=== PATIENT | female | born 1945 | race Caucasian/White ===

== ENCOUNTER 2017-11-06 16:54 | Inpatient (IN) | payer OTHER ==
[~2017-11-06] VITALS: Ht 172.7 cm; Wt 56.5 kg
[2017-11-06 20:26] LABS: BASOPHIL (%) 0.3 % (0-1); EOSINOPHIL (%) 0.4 % (0-5); HEMATOCRIT 33.2 % (36.0-46.0); HEMOGLOBIN 11.1 G/DL (11.9-15.5); IMMATURE GRANULOCYTE (%) 0.3 % (0.0-0.7); LYMPHOCYTE (%) 18.5 % (15-42); LYMPHOCYTE COUNT 1.4 K/uL (1.0-2.8); MCH 28.7 PG (29.0-34.0); MCHC 33.4 G/DL (30.0-36.0); MCV 85.8 FL (83-99); MONOCYTE (%) 6.1 % (3-12); MONOCYTE COUNT 0.5 K/uL (0-0.8); NEUTROPHIL (%) 74.4 % (45-76); NEUTROPHIL COUNT 5.6 K/uL (1.8-6.4); PLATELET COUNT 485 K/uL (156-360); RBC DIS.WIDTH-CV 14.8 % (11.8-14.6); RBC DIS.WIDTH-SD 46.6 % (39-53); RED BLOOD COUNT 3.87 M/uL (3.80-5.20); WHITE BLOOD COUNT 7.5 K/uL (4.1-10.2)
[2017-11-06 20:44] LABS: INTER. NORMALIZED RATIO 1.2
[2017-11-06 20:49] LABS: ALBUMIN 3.4 g/dL (3.2-4.8); CHLORIDE 101 mEq/L (99-109); POTASSIUM 4.6 mEq/L (3.7-5.4); SODIUM 134 mEq/L (136-147)
[2017-11-06 20:51] LABS: GLUCOSE 118 mg/dL (70-99)
[2017-11-06 20:52] LABS: TOTAL PROTEIN 7.1 g/dL (6.4-8.3)
[2017-11-06 20:53] LABS: TOTAL BILIRUBIN 0.3 mg/dL (0.0-1.0); TROP-I INTERPRETATION NEGATIVE; TROPONIN-I 0.02 ng/mL (0.0-0.30)
[2017-11-06 20:55] LABS: ALKALINE PHOSPHATASE 136 IU/L (3-129); CREATININE 0.7 mg/dL (0.6-1.3); GFR ESTIMATE (CALCULATED) > 59 mL/min/
[2017-11-06 20:56] LABS: UREA NITROGEN (BUN) 9 mg/dL (9-23)
[2017-11-06 20:57] LABS: AST (GOT) 20 IU/L (2-34)
[2017-11-06 20:58] LABS: ALT (GPT) 5 IU/L (3-49)
[2017-11-06] MEDS ORDERED: SYNTHROID88 MCG PO (22:43)
[2017-11-06] MEDS ORDERED: LITE COAT ASPI325 M1 PO (22:45)
[2017-11-06] MEDS ORDERED: IBUPROFEN400 MG PO (22:47)
[2017-11-07 06:19] LABS: INTER. NORMALIZED RATIO 1.2
[2017-11-07 15:35] VITALS: BP 127/67
[2017-11-07 19:51] VITALS: BP 122/65
[2017-11-07 23:55] VITALS: BP 119/61
[2017-11-08] VITALS (8 sets, daily range): BP systolic 109–146; BP diastolic 60–81
[2017-11-08 07:21] LABS: HEMATOCRIT 25.5 % (36.0-46.0); MCH 27.5 PG (29.0-34.0); MCHC 30.6 G/DL (30.0-36.0); PLATELET COUNT 430 K/uL (156-360); RBC DIS.WIDTH-SD 49.5 % (39-53); WHITE BLOOD COUNT 7.6 K/uL (4.1-10.2)
[2017-11-08 07:22] LABS: HEMOGLOBIN 7.8 G/DL (11.9-15.5); MCV 89.8 FL (83-99); RED BLOOD COUNT 2.84 M/uL (3.80-5.20)
[2017-11-08 07:45] LABS: CHLORIDE 103 MEQ/L (99-109); CREATININE 0.6 MG/DL (0.6-1.3); GFR ESTIMATE (CALCULATED) > 59 mL/min/; POTASSIUM 4.4 MEQ/L (3.7-5.4); SODIUM 137 MEQ/L (136-147); UREA NITROGEN (BUN) 7 mg/dL (9-23)
[2017-11-08 07:46] LABS: GLUCOSE 88 mg/dL (70-99)
[2017-11-08 09:55] LABS: IRON 20 MCG/DL (35-150); TRANSFERRIN (TIBC) 176.1 mg/dL (215-380); TRANSFERRIN SATUR. 11 % (20-55)
[2017-11-08 10:19] LABS: FOLIC ACID (FOLATE) 11.5 NG/ML (5.0-22.0)
[2017-11-08 10:46] LABS: FERRITIN 25 NG/ML (10-291)
[2017-11-09] VITALS (9 sets, daily range): BP systolic 115–142; BP diastolic 58–81
[2017-11-09 06:31] LABS: HEMATOCRIT 23.1 % (36.0-46.0); HEMOGLOBIN 7.3 G/DL (11.9-15.5); MCH 27.9 PG (29.0-34.0); MCHC 31.6 G/DL (30.0-36.0); MCV 88.2 FL (83-99); PLATELET COUNT 496 K/uL (156-360); RBC DIS.WIDTH-CV 15.1 % (11.8-14.6); RBC DIS.WIDTH-SD 48.5 % (39-53); RED BLOOD COUNT 2.62 M/uL (3.80-5.20); WHITE BLOOD COUNT 8.1 K/uL (4.1-10.2)
[2017-11-09 06:54] LABS: CHLORIDE 104 MEQ/L (99-109); CREATININE 0.5 MG/DL (0.6-1.3); GFR ESTIMATE (CALCULATED) > 59 mL/min/; GLUCOSE 98 mg/dL (70-99); POTASSIUM 4.2 MEQ/L (3.7-5.4); SODIUM 136 MEQ/L (136-147); UREA NITROGEN (BUN) 12 mg/dL (9-23)
[2017-11-10 07:01] LABS: HEMATOCRIT 32.1 % (36.0-46.0); MCV 87.7 FL (83-99)
[2017-11-10 07:05] LABS: HEMOGLOBIN 10.6 G/DL (11.9-15.5)
[2017-11-10 07:45] VITALS: BP 123/74
[2017-11-10 11:33] VITALS: BP 113/62
[2017-11-10 15:00] VITALS: BP 123/66
[2017-11-10 16:10] VITALS: BP 123/66
[2017-11-10 19:09] VITALS: BP 119/67
[2017-11-10 23:58] VITALS: BP 136/72
[2017-11-11 07:24] VITALS: BP 114/65
[2017-11-11 15:21] VITALS: BP 119/64
[2017-11-11 18:52] LABS: STOOL OCCULT BLD 1ST SPECIMEN POSITIVE
[2017-11-12 00:09] VITALS: BP 125/78
[2017-11-12 08:27] VITALS: BP 121/78
[2017-11-12 12:20] LABS: CSF PROTEIN 43 mg/dL (15-45)
[2017-11-12 12:25] LABS: GLUCOSE, CSF 57 mg/dL (40-80)
[2017-11-12 12:37] LABS: BASOPHIL (%) 0.3 % (0-1); EOSINOPHIL (%) 1.9 % (0-5); EOSINOPHIL COUNT 0.2 K/uL (0-0.3); HEMATOCRIT 32.7 % (36.0-46.0); HEMOGLOBIN 10.5 G/DL (11.9-15.5); IMMATURE GRANULOCYTE (%) 0.7 % (0.0-0.7); LYMPHOCYTE (%) 13.3 % (15-42); LYMPHOCYTE COUNT 1.2 K/uL (1.0-2.8); MCH 28.5 PG (29.0-34.0); MCHC 32.1 G/DL (30.0-36.0); MCV 88.6 FL (83-99); MONOCYTE (%) 6.6 % (3-12); MONOCYTE COUNT 0.6 K/uL (0-0.8); NEUTROPHIL (%) 77.2 % (45-76); NEUTROPHIL COUNT 7.1 K/uL (1.8-6.4); PLATELET COUNT 561 K/uL (156-360); RBC DIS.WIDTH-CV 15.2 % (11.8-14.6); RBC DIS.WIDTH-SD 48.4 % (39-53); WHITE BLOOD COUNT 9.2 K/uL (4.1-10.2)
[2017-11-12 12:39] LABS: RED BLOOD COUNT 3.69 M/uL (3.80-5.20)
[2017-11-12 13:24] LABS: APPEARANCE CLEAR/COLORLESS; CSF TUBE NUMBER TUBE #3; RED CELL COUNT 2 /MM^3 (0-1); WHITE CELL COUNT 1 /MM^3 (0-5)
[2017-11-12 13:25] LABS: CHLORIDE 103 MEQ/L (99-109); CREATININE 0.5 MG/DL (0.6-1.3); GFR ESTIMATE (CALCULATED) > 59 mL/min/; GLUCOSE 87 mg/dL (70-99); POTASSIUM 4.4 MEQ/L (3.7-5.4); SODIUM 137 MEQ/L (136-147); UREA NITROGEN (BUN) 10 mg/dL (9-23)
[2017-11-12 16:11] VITALS: BP 124/68
[2017-11-13 00:07] VITALS: BP 125/62
[2017-11-13 06:28] LABS: BASOPHIL (%) 0.4 % (0-1); EOSINOPHIL (%) 3.3 % (0-5); EOSINOPHIL COUNT 0.3 K/uL (0-0.3); HEMATOCRIT 30.2 % (36.0-46.0); HEMOGLOBIN 9.8 G/DL (11.9-15.5); IMMATURE GRANULOCYTE (%) 0.8 % (0.0-0.7); LYMPHOCYTE (%) 20.6 % (15-42); LYMPHOCYTE COUNT 1.6 K/uL (1.0-2.8); MCH 28.7 PG (29.0-34.0); MCHC 32.5 G/DL (30.0-36.0); MCV 88.6 FL (83-99); MONOCYTE (%) 7.2 % (3-12); MONOCYTE COUNT 0.6 K/uL (0-0.8); NEUTROPHIL (%) 67.7 % (45-76); NEUTROPHIL COUNT 5.3 K/uL (1.8-6.4); PLATELET COUNT 521 K/uL (156-360); RBC DIS.WIDTH-CV 15.1 % (11.8-14.6); RBC DIS.WIDTH-SD 48.7 % (39-53); RED BLOOD COUNT 3.41 M/uL (3.80-5.20); WHITE BLOOD COUNT 7.9 K/uL (4.1-10.2)
[2017-11-13 06:52] LABS: CHLORIDE 105 MEQ/L (99-109); CREATININE 0.7 MG/DL (0.6-1.3); GFR ESTIMATE (CALCULATED) > 59 mL/min/; GLUCOSE 91 mg/dL (70-99); POTASSIUM 4.3 MEQ/L (3.7-5.4); SODIUM 136 MEQ/L (136-147); UREA NITROGEN (BUN) 10 mg/dL (9-23)
[2017-11-13 07:00] VITALS: BP 114/62
[2017-11-13] MEDS ORDERED: SPIRIVA RESPIMAT4 GM IH (13:40)
[2017-11-13] MEDS ORDERED: FERROUS SULFAT325 MG PO (13:40)
[2017-11-13] MEDS ORDERED: TOPIRAMATE25 MG PO (13:41)
[2017-11-13] MEDS ORDERED: DOCUSATE SODIU100 MG PO (13:43)
[2017-11-13] MEDS ORDERED: ANTIVERT12.5 MG PO (13:44)
[2017-11-13 15:15] VITALS: BP 132/76
[2017-11-14 00:01] VITALS: BP 126/63
[2017-11-14 07:04] VITALS: BP 120/67
[2017-11-14] MEDS ORDERED: DECADRON4 MG PO (11:46)
[2017-11-14 15:59] VITALS: BP 111/70
[2017-11-14 19:35] VITALS: BP 116/69
[2017-11-14 23:54] VITALS: BP 116/69
[2017-11-15 08:03] VITALS: BP 126/68
[2017-11-15 16:35] VITALS: BP 136/80
[2017-11-16 07:29] VITALS: BP 137/73
[2017-11-16 15:48] VITALS: BP 124/74
[2017-11-17 00:22] VITALS: BP 135/65
[2017-11-17 08:15] VITALS: BP 132/73
[2017-11-17 16:12] VITALS: BP 120/68
[2017-11-18 00:28] VITALS: BP 117/65
[2017-11-18 06:11] LABS: BASOPHIL (%) 0.1 % (0-1); EOSINOPHIL (%) 0.1 % (0-5); HEMATOCRIT 32.8 % (36.0-46.0); HEMOGLOBIN 10.7 G/DL (11.9-15.5); IMMATURE GRANULOCYTE (%) 2.3 % (0.0-0.7); LYMPHOCYTE (%) 10.2 % (15-42); LYMPHOCYTE COUNT 1.4 K/uL (1.0-2.8); MCH 28.8 PG (29.0-34.0); MCHC 32.6 G/DL (30.0-36.0); MCV 88.4 FL (83-99); MONOCYTE (%) 5.9 % (3-12); MONOCYTE COUNT 0.8 K/uL (0-0.8); NEUTROPHIL (%) 81.4 % (45-76); RBC DIS.WIDTH-CV 16.2 % (11.8-14.6); RBC DIS.WIDTH-SD 51.6 % (39-53); RED BLOOD COUNT 3.71 M/uL (3.80-5.20); WHITE BLOOD COUNT 13.5 K/uL (4.1-10.2)
[2017-11-18 06:17] LABS: PLATELET COUNT 687 K/uL (156-360)
[2017-11-18 07:03] LABS: CHLORIDE 102 MEQ/L (99-109); CREATININE 0.6 MG/DL (0.6-1.3); GFR ESTIMATE (CALCULATED) > 59 mL/min/; GLUCOSE 113 mg/dL (70-99); MAGNESIUM 2.2 mg/dl (1.3-2.7); POTASSIUM 3.9 MEQ/L (3.7-5.4); SODIUM 132 MEQ/L (136-147); UREA NITROGEN (BUN) 20 mg/dL (9-23)
[2017-11-18 09:34] VITALS: BP 136/73
[2017-11-18 17:01] VITALS: BP 134/75
[2017-11-18 23:37] VITALS: BP 165/84
[2017-11-19 07:04] VITALS: BP 133/80
[2017-11-19 15:38] VITALS: BP 119/64
[2017-11-20 00:19] VITALS: BP 136/81
[2017-11-20 07:33] VITALS: BP 116/67
[2017-11-20 15:08] VITALS: BP 119/61
== END 2017-11-20 19:35 | DRG 180 ==
LOC: RME 16:54 → EME 16:54 → EDOF 23:29 → 5EAST 23:29 → ENRESERV 23:31 → EDOF 11-07 01:20 → ENRESERV 11-07 13:20 → 5EAST 11-07 14:41
PROVIDERS: Hospitalist; Internal Medicine; Physician Assistant; Radiology Diagnostic Radiology; Student in an Organized Health Care Education/Training Program
DX: C78.00 Secondary malignant neoplasm of unspecified lung (principal); C34.90 Malignant neoplasm of unspecified part of unspecified bronchus or lung; D62 Acute posthemorrhagic anemia; C79.31 Secondary malignant neoplasm of brain; E03.9 Hypothyroidism, unspecified; E61.1 Iron deficiency; F17.210 Nicotine dependence, cigarettes, uncomplicated; G03.8 Meningitis due to other specified causes
CPT/HCPCS: 62270; 70450; 70553; 71045; 71275; 77003; 77012; 80048; 80053; 82272; 82607; 82728; 82746; 82945; 83540; 83735; 84157; 84466; 84484; 85014; 85018; 85025; 85027; 85610; 85730; 86850; 86900; 86901; 86920; 88108; 88305; 88341 TC; 88342 TC; 89051; 90686; 93005; 94640; 94640 76; 97530 GO; 97530 GP; 99202; 99281; 99285; G0378; G8978 GP CI; G8979 GP CH; J1100; J1644; J1756; J2405; J3010; J7030; J7050; J8540; P9016

== ENCOUNTER 2017-11-29 20:59 | Inpatient (IN) | payer OTHER ==
[~2017-11-29] VITALS: Ht 172.7 cm; Wt 62.0 kg
[~2017-11-29 20:59] MED LIST: ANTIVERT12.5 MG PO; DECADRON4 MG PO; DOCUSATE SODIU100 MG PO; FERROUS SULFAT325 MG PO; IBUPROFEN400 MG PO; LITE COAT ASPI325 M1 PO; SPIRIVA RESPIMAT4 GM IH; SYNTHROID88 MCG PO; TOPIRAMATE25 MG PO
[2017-11-29 21:46] LABS: BASE EXCESS -1.4 mEq/L (-3 to +3); BICARBONATE 20.7 mEq/L (22-26); CARBOXY HGB 2.1 % (0-5); COMMENTS - BLOOD GASES A+C+; PCO2 26 mm Hg (35-45); PO2 45 mm Hg (80-100); SITE RR; pH 7.51 (7.35-7.45)
[2017-11-29 21:52] LABS: HEMATOCRIT 30.6 % (36.0-46.0); HEMOGLOBIN 10.2 G/DL (11.9-15.5); MCH 29.9 PG (29.0-34.0); MCHC 33.3 G/DL (30.0-36.0); MCV 89.7 FL (83-99); PLATELET COUNT 453 K/uL (156-360); RBC DIS.WIDTH-SD 55.8 % (39-53); RED BLOOD COUNT 3.41 M/uL (3.80-5.20)
[2017-11-29 21:55] LABS: INTER. NORMALIZED RATIO 1.2
[2017-11-29 21:58] LABS: PTT 28.5 SEC (25-37)
[2017-11-29 22:07] LABS: CHLORIDE 104 mEq/L (99-109); POTASSIUM 4.1 mEq/L (3.7-5.4); SODIUM 134 mEq/L (136-147)
[2017-11-29 22:08] LABS: MAGNESIUM 1.6 mg/dL (1.3-2.7)
[2017-11-29 22:09] LABS: GLUCOSE 144 mg/dL (70-99)
[2017-11-29 22:13] LABS: CREATININE 0.8 mg/dL (0.6-1.3); GFR ESTIMATE (CALCULATED) > 59 mL/min/
[2017-11-29 22:14] LABS: UREA NITROGEN (BUN) 31 mg/dL (9-23)
[2017-11-29 22:15] LABS: TROP-I INTERPRETATION NEGATIVE; TROPONIN-I 0.02 ng/mL (0.0-0.30)
[2017-11-29 22:35] LABS: ABS NEUTROPHIL COUNT 7.3; ANISOCYTOSIS 2+; BAND NEUTROPHILS 51.8 % (0-8.0); EOSINOPHIL ABS CT 0; LYMPHOCYTES 13.2 % (15.0-45.0); MACROCYTES 1+; MICROCYTOSIS 1+; MONOCYTES 6.1 % (0-9.0); PLAT.SUFFICIENCY INCREASED; SEG.NEUTROPHILS 28.9 % (46.0-76.0)
[2017-11-30] VITALS (7 sets, daily range): BP systolic 102–164; BP diastolic 59–92
[2017-11-30] MEDS ORDERED: SPIRIVA RESPIMAT4 GM IH (01:18)
[2017-11-30] MEDS ORDERED: DECADRON4 MG PO (01:19)
[2017-11-30] MEDS ORDERED: MELATONIN3 MG PO (01:20)
[2017-11-30] MEDS ORDERED: ANTIVERT12.5 MG PO (01:21)
[2017-11-30] MEDS ORDERED: AMBIEN5 MG PO (01:22)
[2017-11-30] MEDS ORDERED: MUCINEX DM ER1 EACH PO (01:22)
[2017-11-30] MEDS ORDERED: PHILLIPS'400 MG/5 M PO (01:23)
[2017-11-30] MEDS ORDERED: DULCOLAX10 MG PR (01:23)
[2017-11-30] MEDS ORDERED: TYLENOL REGULA325 MG PO (01:24)
[2017-11-30] MEDS ORDERED: FLEET ENEMA-AD118 ML PR (01:24)
[2017-11-30] MEDS ORDERED: CLEOCIN300 MG PO (01:52)
[2017-11-30 17:21] LABS: TYPE OF FLUID PLEURAL
[2017-11-30 17:50] LABS: APPEARANCE BLOODY; BODY FLUID EOSINOPHILS 0 % (0-25); BODY FLUID RBC'S 300000 /MM^3 (0-100); BODY FLUID WBC'S 2930 /MM^3 (0-500); MONONUCLEAR WBC'S 67 %; POLYNUCLEAR WBC'S 33 % (0-25)
[2017-11-30 18:00] LABS: BODY FLUID GLUCOSE 69 MG/DL; BODY FLUID LDH 3339 IU/L; BODY FLUID PROTEIN 3.6 G/DL
[2017-12-01] VITALS (12 sets, daily range): BP systolic 100–134; BP diastolic 59–82
[2017-12-01 06:38] LABS: BASOPHIL (%) 0 % (0-1); EOSINOPHIL (%) 0 % (0-5); HEMATOCRIT 23.2 % (36.0-46.0); LYMPHOCYTE (%) 5.1 % (15-42); LYMPHOCYTE COUNT 0.6 K/uL (1.0-2.8); MCH 28.9 PG (29.0-34.0); MCHC 31.9 G/DL (30.0-36.0); MCV 90.6 FL (83-99); MONOCYTE (%) 1.6 % (3-12); MONOCYTE COUNT 0.2 K/uL (0-0.8); NEUTROPHIL (%) 92.3 % (45-76); NEUTROPHIL COUNT 10.2 K/uL (1.8-6.4); PLATELET COUNT 338 K/uL (156-360); RBC DIS.WIDTH-CV 17.2 % (11.8-14.6); RBC DIS.WIDTH-SD 57.8 % (39-53)
[2017-12-01 07:02] LABS: CHLORIDE 105 MEQ/L (99-109); CREATININE 0.6 MG/DL (0.6-1.3); GFR ESTIMATE (CALCULATED) > 59 mL/min/; POTASSIUM 4.3 MEQ/L (3.7-5.4); SODIUM 136 MEQ/L (136-147); UREA NITROGEN (BUN) 26 mg/dL (9-23)
[2017-12-01 07:05] LABS: GLUCOSE 105 mg/dL (70-99)
[2017-12-01 07:07] LABS: HEMOGLOBIN 7.4 G/DL (11.9-15.5); RED BLOOD COUNT 2.56 M/uL (3.80-5.20)
[2017-12-02] VITALS (9 sets, daily range): BP systolic 105–156; BP diastolic 61–90
[2017-12-02 06:57] LABS: BASOPHIL (%) 0.2 % (0-1); EOSINOPHIL (%) 0 % (0-5); HEMATOCRIT 30.6 % (36.0-46.0); IMMATURE GRANULOCYTE (%) 2.7 % (0.0-0.7); LYMPHOCYTE COUNT 0.7 K/uL (1.0-2.8); MCH 29.6 PG (29.0-34.0); MCHC 33.3 G/DL (30.0-36.0); MCV 88.7 FL (83-99); MONOCYTE COUNT 0.3 K/uL (0-0.8); NEUTROPHIL (%) 90.1 % (45-76); NEUTROPHIL COUNT 13.4 K/uL (1.8-6.4); PLATELET COUNT 306 K/uL (156-360); RBC DIS.WIDTH-CV 16.5 % (11.8-14.6); RBC DIS.WIDTH-SD 53.2 % (39-53); WHITE BLOOD COUNT 14.8 K/uL (4.1-10.2)
[2017-12-02 06:58] LABS: HEMOGLOBIN 10.2 G/DL (11.9-15.5); RED BLOOD COUNT 3.45 M/uL (3.80-5.20)
[2017-12-02 07:19] LABS: CHLORIDE 104 MEQ/L (99-109); CREATININE 0.5 MG/DL (0.6-1.3); GFR ESTIMATE (CALCULATED) > 59 mL/min/; GLUCOSE 109 mg/dL (70-99); POTASSIUM 3.9 MEQ/L (3.7-5.4); SODIUM 136 MEQ/L (136-147); UREA NITROGEN (BUN) 21 mg/dL (9-23)
[2017-12-03 01:33] VITALS: BP 133/77
[2017-12-03 03:47] VITALS: BP 120/75
[2017-12-03 06:04] LABS: BASOPHIL (%) 0.2 % (0-1); EOSINOPHIL (%) 0 % (0-5); HEMATOCRIT 31.5 % (36.0-46.0); HEMOGLOBIN 10.5 G/DL (11.9-15.5); IMMATURE GRANULOCYTE (%) 3.2 % (0.0-0.7); LYMPHOCYTE (%) 4.8 % (15-42); LYMPHOCYTE COUNT 0.8 K/uL (1.0-2.8); MCH 29.4 PG (29.0-34.0); MCHC 33.3 G/DL (30.0-36.0); MCV 88.2 FL (83-99); MONOCYTE (%) 3.3 % (3-12); MONOCYTE COUNT 0.5 K/uL (0-0.8); NEUTROPHIL (%) 88.5 % (45-76); NEUTROPHIL COUNT 14.1 K/uL (1.8-6.4); PLATELET COUNT 306 K/uL (156-360); RBC DIS.WIDTH-CV 16.6 % (11.8-14.6); RBC DIS.WIDTH-SD 53.2 % (39-53); RED BLOOD COUNT 3.57 M/uL (3.80-5.20); WHITE BLOOD COUNT 15.9 K/uL (4.1-10.2)
[2017-12-03 06:28] LABS: CHLORIDE 104 MEQ/L (99-109); CREATININE 0.5 MG/DL (0.6-1.3); GFR ESTIMATE (CALCULATED) > 59 mL/min/; GLUCOSE 120 mg/dL (70-99); POTASSIUM 3.6 MEQ/L (3.7-5.4); SODIUM 134 MEQ/L (136-147); UREA NITROGEN (BUN) 16 mg/dL (9-23)
[2017-12-03 06:50] VITALS: BP 128/77
[2017-12-03 11:00] VITALS: BP 131/74
[2017-12-03] MEDS ORDERED: GUAIFENESI100 MG/5 M PO (11:45)
[2017-12-03] MEDS ORDERED: MORPHINE CON20 MG/M1 PO (11:49)
[2017-12-03] MEDS ORDERED: HYOSCYAMINE0.125 M2 PO (11:49)
[2017-12-03] MEDS ORDERED: ATIVAN0.5 MG PO (11:49)
[2017-12-03] MEDS ORDERED: AUGMENTIN600 MG/5 M PO (11:50)
== END 2017-12-03 13:56 | disposition hospice, home (50) | DRG 181 ==
LOC: EME 20:59 → 5EAST 11-30 01:30 → 2EAST 11-30 01:30 → EDOF 11-30 01:30 → ENRESERV 11-30 01:41 → 2EAST 11-30 03:58 → ENRESERV 11-30 14:22 → 5EAST 11-30 16:13
PROVIDERS: Emergency Medicine; Family Medicine
PROC: 0W993ZZ Drainage of Right Pleural Cavity, Percutaneous Approach (ICD-10-PCS; principal; 2017-11-30)
PROC: 30233N1 Transfusion of Nonautologous Red Blood Cells into Peripheral Vein, Percutaneous Approach (ICD-10-PCS; 2017-12-01)
DX: C78.2 Secondary malignant neoplasm of pleura (principal); J91.0 Malignant pleural effusion; C78.7 Secondary malignant neoplasm of liver and intrahepatic bile duct; C79.31 Secondary malignant neoplasm of brain; C79.01 Secondary malignant neoplasm of right kidney and renal pelvis; C77.1 Secondary and unspecified malignant neoplasm of intrathoracic lymph nodes; C34.31 Malignant neoplasm of lower lobe, right bronchus or lung; Z51.5 Encounter for palliative care; Z66 Do not resuscitate; R78.81 Bacteremia; B95.61 Methicillin susceptible Staphylococcus aureus infection as the cause of diseases classified elsewhere; D63.0 Anemia in neoplastic disease; E03.9 Hypothyroidism, unspecified; G91.2 (Idiopathic) normal pressure hydrocephalus; J44.9 Chronic obstructive pulmonary disease, unspecified; J98.11 Atelectasis; G43.909 Migraine, unspecified, not intractable, without status migrainosus; Z79.82 Long term (current) use of aspirin; Z87.891 Personal history of nicotine dependence
CPT/HCPCS: 36600; 71045; 71275; 76942; 80048; 80048 91; 82803; 82945; 83605; 83615 91; 83735; 84157; 84484; 85025; 85025 91; 85610; 85730; 86850; 86870; 86900; 86901; 86905; 86920; 87040; 87070; 87075; 87077; 87186; 87205; 87801; 88108; 89051; 92610 GN; 93005; 94640; 94640 76; 94667; 94668; 94760; 94799; 99281; 99285; J1100; J2405; J2543; J2920; J7050; J7644; J8540; P9016